=== PATIENT | male | born 1955 | race Caucasian/White ===

== ENCOUNTER 2021-06-06 10:47 | Outpatient (CLI) | payer BC, SELFPAY ==
--- NOTE | 2021-06-06 11:16 | ECG_ITS ---
Measurements Intervals [place] Rate: 56 P: 47 [place]: 162 QRS: 9 QRSD: 123 T: 31 QT: 442 QTc: 427 Interpretive Statements SINUS BRADYCARDIA INCOMPLETE RIGHT BUNDLE BRANCH BLOCK BASELINE ARTIFACT- V1-V2 BORDERLINE ECG Electronically Signed On 06-06-2021 11:43:55 CDT by Niranjan Wesley D.O.
== END 2021-06-06 10:48 | disposition home or self-care (01) ==
PROVIDERS: PCP Family Medicine; Visit Provider Podiatrist Foot & Ankle Surgery
DX: Z01.810 Encounter for preprocedural cardiovascular examination (principal); I10 Essential (primary) hypertension
CPT/HCPCS: 93005

== ENCOUNTER 2021-06-25 08:32 | Outpatient (CLI) | payer BC, SELFPAY ==
--- NOTE | 2021-06-25 08:43 | ECHO_ITS ---
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 Summary 1. Complete two-dimensional, color flow and Doppler transthoracic echocardiogram is performed. 2. Left ventricular chamber size, systolic and diastolic function are normal with no regional wall motion abnormalities with an estimated ejection fraction of >70%. Mild concentric LVH. 3. Left atrial chamber dimension is moderately enlarged. 4. There is moderate to severe aortic valve stenosis with a peak velocity of 409 cm/s, mean gradient of 38 mmHg, and aortic valve area of 1.2 cm2. 5. There is severe aortic valve calcification. Unable to determine the morphology of the aortic valve; may be bicuspid. 6. Redundant chordae noted in the ventricle. Trace mitral regurgitation. 7. There is mild to moderate aortic valve regurgitation. 8. No pulmonary hypertension, estimated pulmonary arterial systolic pressure is 25 mmHg. 9. Normal sinus rhythm. Recommendations * Consider cardiology evaluation. Left Ventricle Left ventricular chamber dimension is normal. Left ventricular systolic function is normal, estimated at >70%. There is mildly increased left ventricular wall thickness. Left ventricular septal wall motion is normal. The left ventricular diastolic function is normal. Left ventricular chamber size, systolic and diastolic function are normal with no regional wall motion abnormalities with an estimated ejection fraction of >70%. Mild concentric LVH. Right Ventricle Right ventricular chamber dimension is normal. Right ventricular systolic function is normal. Left Atria Left atrial chamber dimension is moderately enlarged. Right Atria Right atrial chamber dimension is normal. Aortic Valve The aortic valve is trileaflet. There is no aortic valve sclerosis. There is moderate to severe aortic valve stenosis with a peak velocity of 409 cm/s, mean gradient of 38 mmHg, and aortic valve area of 1.2 cm2. There is mild to moderate aortic valve regurgitation. There is severe aortic valve calcification. Unable to determine the morphology of the aortic valve; may be bicuspid. Pulmonic Valve The pulmonic valve is normal. There is no pulmonic valve stenosis. There is no pulmonic regurgitation. Mitral Valve The mitral valve has normal leaflets. There is no mitral valve stenosis. There is trace mitral valve regurgitation. Tricuspid Valve The tricuspid valve leaflets are normal. There is no significant tricuspid valve stenosis. There is trace tricuspid valve regurgitation. No pulmonary hypertension, estimated pulmonary arterial systolic pressure is 25 mmHg. Pericardium/Pleural The pericardium appears normal. There is no pericardial effusion. Inferior Vena Cava Normal inferior vena cava with >50% collapse upon inspiration consistent with Empty right atrial pressure, 10 mmHg.
== END 2021-06-25 08:33 | disposition home or self-care (01) ==
PROVIDERS: PCP Family Medicine; Visit Provider Physician Assistant
DX: Q23.1 Congenital insufficiency of aortic valve (principal)
CPT/HCPCS: 93306

== ENCOUNTER → 2021-11-07 07:03 | Outpatient (CLI) | payer BC, SELFPAY ==
[2021-11-08 02:21] LABS: SARS-CoV-2 RNA PCR Negative
== END ==
PROVIDERS: PCP Family Medicine; Visit Provider Physician Assistant Medical
DX: Z20.822 Contact with and (suspected) exposure to COVID-19 (principal)
CPT/HCPCS: C9803; U0003; U0005

== ENCOUNTER 2022-05-02 14:16 | Outpatient (CLI) | payer BC, SELFPAY ==
--- NOTE | ~2022-05-02 | US_ITS ---
EXAMINATION: US venous doppler LE RT DATE: 05/02/2022 14:51 INDICATION: Right lower limb swelling TECHNIQUE: Grayscale ultrasound images without and with compression and Doppler ultrasound images of the right lower extremity veins were obtained. COMPARISON: 06/23/2017 FINDINGS: The visualized portions of right common femoral vein, profunda (deep) femoral vein, femoral vein, pop liteal vein, peroneal trunk, posterior tibial veins, peroneal veins and greater saphenous vein outflo w remain patent. IMPRESSION: 1. No deep venous thrombosis in the right lower limb. Reviewed, dictated and finalized at location B.
== END 2022-05-02 14:17 | disposition home or self-care (01) ==
PROVIDERS: PCP Family Medicine; Visit Provider Podiatrist Foot & Ankle Surgery
DX: M79.661 Pain in right lower leg (principal)
CPT/HCPCS: 93971

== ENCOUNTER 2022-09-03 08:34 | Outpatient (CLI) | payer BC, SELFPAY ==
--- NOTE | 2022-09-03 | ECG_ITS ---
Measurements Intervals [place] Rate: 54 P: 42 [place]: 168 QRS: 11 QRSD: 121 T: 28 QT: 432 QTc: 413 Interpretive Statements SINUS BRADYCARDIA POSSIBLE RIGHT VENTRICULAR CONDUCTION DELAY [RSR (QR) IN V1/V2] NO PREVIOUS ECG AVAILABLE FOR COMPARISON Electronically Signed On 09-03-2022 16:15:49 CDT by Marty Ceron M.D.
== END 2022-09-03 08:35 | disposition home or self-care (01) ==
PROVIDERS: PCP Family Medicine; Visit Provider Podiatrist Foot & Ankle Surgery
DX: R03.0 Elevated blood-pressure reading, without diagnosis of hypertension (principal); R00.1 Bradycardia, unspecified
CPT/HCPCS: 93005

== ENCOUNTER 2023-11-20 08:51 | Outpatient (CLI) | payer BC, SELFPAY ==
--- NOTE | 2023-11-24 13:39 | WPDHOMESLEEP ---
Sleep Study - Home Unattended Date of Study: 11/20/23 Ordering Provider: Deisy Moreno NP-C Interpreting Provider: Desi Savage, DO Home Sleep Study Type: Watch PAT Height: 1.93 m Weight: 109.769 kg Body Mass Index: 29.4 Neck Circumference (inches): 17 [place]: 7 Reason for Sleep Study Nocturia, difficulty falling & staying asleep Sleep History The patient is a 68 year male with severe aortic stenosis status post valve replacement, hypertension, hyperlipidemia, obesity and prediabetes that had a sleep study ordered by his primary care for evaluation of sleep apnea. The patient occasionally awakens from sleep short of breath. He denies awakening at night with heartburn, belching or cough. He frequently snores and is frequently loud enough that others complain. He occasionally has trouble sleeping when he has a cold. He occasionally wakes up gasping for air throughout the night. He rarely has breathing problems at night observed by himself or others. He occasionally sweats excessively at night. He occasionally has heart palpitations or irregular heartbeats during the night. He occasionally falls asleep during the day but never while driving. He denies sleep paralysis, cataplexy and hypnagogic / hypnopompic hallucinations. He rarely has trouble at school or work due to sleepiness. He denies feeling afraid of going to sleep. He denies having nightmares. He occasionally remembers his dreams. He occasionally has thoughts racing through his mind. He rarely feels sad or depressed. He occasionally has anxiety. He rarely has muscular tension. He denies noticing parts of his body jerk. He denies kicking during the night. He denies having crawling and aching feelings in his legs and denies having leg pain during the night. He denies grinding his teeth during sleep and denies awakening with morning jaw pain. He is occasionally bothered by pain during the day but rarely awakened by pain during the night. He occasionally wakes up feeling stiff in the morning. He occasionally wakes up with sore or achy muscles. He rarely wakes up with pain in the neck, spine and other joints. He goes to bed at 10:00 p.m. on weekdays and 11:00 p.m. on the weekends. It takes him 5-10 minutes to fall asleep. He wakes up 2-3 times throughout the night to urinate and is able to fall back asleep within 15 minutes. He wakes up at 6:00 a.m. on weekdays and 7:00 a.m. on the weekends. He typically gets 7-8 hours of sleep per night. He will spend a few minutes in bed after waking up in the morning. He currently lives with his . He denies consuming any caffeinated beverages within 2 hours of bedtime. He denies engaging in physical exercise before bedtime. He will watch television before falling asleep. He will take naps in the afternoon or the evening and they are refreshing. He denies consuming caffeinated beverages throughout the day. He denies tobacco, alcohol and recreational drug use. [facility] Past Medical History Medical History Hepatitis C antibody test negative (07/01/17) Surgical History Surgical History H/O colonoscopy 04-08-2014 History of open heart surgery 09/12/23 Family History Family History Mother Diabetes mellitus Hypertension Cerebrovascular accident Carcinoma of colon Father Hypertension, Onset Age: 64 Family history of elevated blood lipids, Onset Age: 64 Acute myocardial infarction, Onset Age: 64 Sibling Malignant neoplasm of prostate Social History Social History Smoking status: Never smoker Alcohol intake: current Lack of Transportation: No Lack of Food: Never True Current Housing: I Have Housing Concerned About Future Housing: No Difficulty Paying
[2023-11-24 13:41] VITALS: BMI 29.4
== END 2023-11-21 07:30 | disposition home or self-care (01) ==
LOC: ANHCSM 08:57
PROVIDERS: PCP Family Medicine; Visit Provider Nurse Practitioner
DX: G47.33 Obstructive sleep apnea (adult) (pediatric) (principal)
CPT/HCPCS: 95800

== ENCOUNTER 2023-12-29 12:08 | Outpatient (CLI) | payer BC, SELFPAY ==
[2023-12-29 13:21] LABS: Alanine Aminotransferase 25 U/L (6-50); Albumin Level 4.5 g/dL (3.5-5.1); Alkaline Phosphatase 66 U/L (38-126); Anion Gap 3 mmol/L (8-16); Aspartate Amino Transferase 29 U/L (17-59); Blood Urea Nitrogen 15 mg/dL (9-20); Calcium 9.5 mg/dL (8.4-10.2); Carbon Dioxide 34 mmol/L (22-30); Chloride 103 mmol/L (98-107); Estimated Glomerular Filt Rate > 60; Glucose 90 mg/dL (65-110); Potassium 4.4 mmol/L (3.4-5.0); Sodium 140 mmol/L (137-145)
== END 2023-12-29 12:09 | disposition home or self-care (01) ==
LOC: ANHLAB 12:10
PROVIDERS: PCP Family Medicine; Visit Provider Internal Medicine Cardiovascular Disease
DX: I25.10 Atherosclerotic heart disease of native coronary artery without angina pectoris (principal); I10 Essential (primary) hypertension
CPT/HCPCS: 36415; 80053

== ENCOUNTER 2024-01-01 08:58 | Outpatient (CLI) | payer BC, SELFPAY ==
--- NOTE | 2024-01-27 13:19 | WPDSLEEPSTUD ---
Sleep Study Date of Study: 01/01/24 Ordering Provider: Desi Savage DO Interpreting Physician: Desi Savage DO Sleep Study Type: CPAP Titration Height: 1.91 m Weight: 109.769 kg Body Mass Index: 30.2 Neck Circumference (inches): 17 [place]: 7 Reason for Sleep Study The patient had a WatchPAT home sleep test on 11/20/2023 that showed an overall AHI of 15.9 with desaturation down to 72%. Sleep History The patient is a 68 year male with severe aortic stenosis status post valve replacement, hypertension, hyperlipidemia, obesity and prediabetes that had a sleep study ordered by his primary care for evaluation of sleep apnea.? The patient occasionally awakens from sleep short of breath.? He denies awakening at night with heartburn, belching or cough.? He frequently snores and is frequently loud enough that others complain.? He occasionally has trouble sleeping when he has a cold.? He occasionally wakes up gasping for air throughout the night.? He rarely has breathing problems at night observed by himself or others.? He occasionally sweats excessively at night.? He occasionally has heart palpitations or irregular heartbeats during the night.? He occasionally falls asleep during the day but never while driving.? He denies sleep paralysis, cataplexy and hypnagogic / hypnopompic hallucinations.? He rarely has trouble at school or work due to sleepiness.? He denies feeling afraid of going to sleep.? He denies having nightmares.? He occasionally remembers his dreams.? He occasionally has thoughts racing through his mind.? He rarely feels sad or depressed.? He occasionally has anxiety.? He rarely has muscular tension.? He denies noticing parts of his body jerk.? He denies kicking during the night.? He denies having crawling and aching feelings in his legs and denies having leg pain during the night.? He denies grinding his teeth during sleep and denies awakening with morning jaw pain.? He is occasionally bothered by pain during the day but rarely awakened by pain during the night.? He occasionally wakes up feeling stiff in the morning.? He occasionally wakes up with sore or achy muscles.? He rarely wakes up with pain in the neck, spine and other joints.? He goes to bed at 10:00 p.m. on weekdays and 11:00 p.m. on the weekends.? It takes him 5-10 minutes to fall asleep.? He wakes up 2-3 times throughout the night to urinate and is able to fall back asleep within 15 minutes.? He wakes up at 6:00 a.m. on weekdays and 7:00 a.m. on the weekends.? He typically gets 7-8 hours of sleep per night.? He will spend a few minutes in bed after waking up in the morning.? He currently lives with his .? He denies consuming any caffeinated beverages within 2 hours of bedtime.? He denies engaging in physical exercise before bedtime.? He will watch television before falling asleep.? He will take naps in the afternoon or the evening and they are refreshing.? He denies consuming caffeinated beverages throughout the day.? He denies tobacco, alcohol and recreational drug use. [facility] Past Medical History Medical History Hepatitis C antibody test negative (07/01/17) Surgical History Surgical History H/O colonoscopy 04-08-2014 History of open heart surgery 09/12/23 Family History Family History Mother Diabetes mellitus Hypertension Cerebrovascular accident Carcinoma of colon Father Hypertension, Onset Age: 64 Family history of elevated blood lipids, Onset Age: 64 Acute myocardial infarction, Onset Age: 64 Sibling Malignant neoplasm of prostate Social History Social History Smoking status: Never smoker Alcohol intake: current Lack of Transportation: No Lack of Food: Never True Current Housing: I Have [place]
[2024-01-27 13:25] VITALS: BMI 30.2
== END 2024-01-02 07:21 | disposition home or self-care (01) ==
LOC: ANHCSM 08:58
PROVIDERS: PCP Family Medicine; Visit Provider Family Medicine
DX: G47.33 Obstructive sleep apnea (adult) (pediatric) (principal)
CPT/HCPCS: 95811

== ENCOUNTER 2024-04-29 15:59 | Outpatient (CLI) | payer BC, SELFPAY ==
[2024-04-29 20:00] LABS: Anion Gap 5 mmol/L (4-12); Blood Urea Nitrogen 14 mg/dL (9-20); Calcium 9.1 mg/dL (8.4-10.2); Carbon Dioxide 31 mmol/L (22-30); Chloride 107 mmol/L (98-107); Estimated Glomerular Filt Rate > 60; Glucose 95 mg/dL (65-110); Sodium 143 mmol/L (137-145)
== END 2024-04-29 16:00 | disposition home or self-care (01) ==
LOC: ANHGOSHLAB 16:00
PROVIDERS: PCP Family Medicine; Visit Provider Family Medicine
DX: Z79.899 Other long term (current) drug therapy (principal)
CPT/HCPCS: 36415; 80048

== ENCOUNTER 2024-06-25 16:06 | Outpatient (CLI) | payer BC, SELFPAY ==
--- NOTE | ~2024-06-25 | XR_ITS ---
XR knee LT 3V Ordering provider: Deisy Moreno, CHIEF LEARNING OFFICER-C History: . M25.562 - Pain in left knee . Comparison: None. FINDINGS: BONES: No acute fracture or dislocation. Bone islands seen in the proximal tibia. JOINT SPACES: Normal. Marginal size seen in the patella. SOFT TISSUES: Ossification of the insertion of the quadriceps tendon. IMPRESSION: No acute osseous abnormality left knee. Reviewed, dictated and finalized at location A.
== END 2024-06-25 16:07 | disposition home or self-care (01) ==
LOC: ANHIMG 16:08
PROVIDERS: PCP Family Medicine; Visit Provider Nurse Practitioner
DX: M25.562 Pain in left knee (principal)
CPT/HCPCS: 73562

== ENCOUNTER 2024-12-17 00:20 | Day surgery (SDC) | payer BC, SELFPAY ==
[2024-12-10 15:22] VITALS: BMI 30.2
--- NOTE | 2024-12-10 15:39 | SUR.PREOP ---
Spoke with patient regarding medication Plavix. Patient verbalizes understanding that the last dose is to be taken on 12/12/24 and the Endoscopist will instruct them when to restart after the procedure.
--- NOTE | 2024-12-13 13:13 | PC.NURSE ---
Spoke with patient regarding medication plavix. Patient verbalizes understanding that the last dose is to be taken on 12/12/2024- states he saw Dr. Funes today and he will not be restarting Plavix and will remain only on an Aspirin 81mg daily .
--- OUTSIDE RECORDS SUMMARY | 2024-12-17 00:22 | XMS_ITS | Referral Summary ---
Author Organization [place] [address] [address] [facility] [address] [place] [address] Care Team Providers Care Transportation Operations Manager Name Role Phone Wendy Curiel Primary Care Provider Nile Parish MD Unavailable [phone] Su Funes MD Unavailable [phone] Encounters Date Type Department Care Team Description 12/13/2024 8:15 AM FACILITIES PROJECT MANAGER Office Visit [facility] Cardiology [address] [facility] [address] [place] [address] Su Funes MD S/P CABG x 1 (Primary Dx); S/P AVR (aortic valve replacement); Postoperative atrial fibrillation (CMS/HCC) (HCC); Primary hypertension; Mixed hyperlipidemia; Chronic diastolic congestive heart failure (CMS/HCC) (HCC); Coronary artery disease involving [place] coronary artery of [place] heart without angina pectoris; Other sleep apnea 12/09/2024 Telephone [facility] Cardiology [address] [place] [address] [address] [place] [address] Su Funes MD 10/06/2024 Telephone [facility] Cardiology [address] [place] [address] [address] [place] [address] Su Funes MD from Last 3 Months Allergies Active Allergy Reactions Criticality Noted Date Comments Iodinated Contrast Media Rash,Flushing (skin) Medium 0 08/08/2023 Medications [id number] -Lmfolate-algal 27 mg iron-1.13 mg-581.92 mg capsule Take 2 tablets by mouth daily Active metoprolol tartrate (LOPRESSOR) 25 mg immediate release tabletIndicatio ns:Postoperativ e atrial fibrillation (CMS/HCC) (HCC) Take 1 tablet (25 mg total) by mouth 2 (two) times a day 180 tablet 3 11/14/19 24 Active Additional Information Patient taking differently:25 mg oralDaily, Reported on 12/13/2024 furosemide (LASIX) 40 mg tabletIndicatio ns:S/P CABG x 1 TAKE 1 TABLET BY MOUTH EVERY DAY 90 tablet 3 01/15/20 24 Active potassium chloride ER (Klor-Con M20) 20 mEq CR tabletIndicatio ns:Primary hypertension TAKE 1 TABLET BY MOUTH 2 TIMES A DAY. 180 tablet 3 03/22/20 24 Active hydrALAZINE (APRESOLINE) 25 mg tabletIndicatio ns:Primary hypertension TAKE 1 TABLET BY MOUTH THREE TIMES A DAY 270 tablet 1 09/27/20 24 Active amoxicillin (AMOXIL) 500 mg tablet/capsule Take 4 caps (2000 mg) 1 hour prior to dentist appointment. 4 tablet/caps ule 1 10/06/20 24 Active atorvastatin (LIPITOR) 10 mg tabletIndicatio ns:S/P CABG x 1 TAKE 1 TABLET BY MOUTH EVERY DAY 90 tablet 2 10/29/20 24 Active aspirin 81 mg enteric coated tabletIndicatio ns:S/P CABG x 1 TAKE 1 TABLET BY MOUTH EVERY DAY 90 tablet 2 11/02/20 24 Active clopidogreL (PLAVIX) 75 mg tabletIndicatio ns:S/P CABG x 1 TAKE 1 TABLET BY MOUTH EVERY DAY 90 tablet 1 09/27/20 24 025 Discontinued Active Problems Problem Noted Date Diagnosed Date S/P AVR (aortic valve replacement) 10/20/2023 S/P CABG x 1 10/20/2023 Other thrombophilia 10/20/2023 Postoperative atrial fibrillation (CMS/HCC) 09/10 Chronic diastolic congestive heart failure (CMS/ HCC) 09/21/2023 Coronary artery disease invo lving [place] coronary artery of [place] heart without angina pectoris 09/21/2023 Other sleep apnea 01/13/2023 Hypertension 07/09/2021 Hyperlipidemia 07/09/2021 Resolved Problems Problem Noted Date Diagnosed Date Resolved Date Paroxysmal atrial fibrillation (CMS/HCC) 09/20/2023 10/20/2023 Aortic valve stenosis, etiol ogy of cardiac valve disease unspecified 09/12/2023 03/01/2024 Aortic valve stenosis 09/02/20232023 SOB (shortness of breath) on exertion 07/21/2023 12/13/2024 Nonrheumatic aortic valve stenosis 07/08/2022 12/13/2024 Social History Tobacco Use Types Packs/Day Years Used Date Smoking Tobacco: Never Passive Smoke Exposure: Past Smokeless Tobacco: Never OASIS D0700: Social Isolation Answer Da te Recorded Frequency of experiencing loneliness or isolatio n Never 10/17/2023 OASIS A1250: Transportation Answer Date Recorded Lack of Transportation (Medical) No 10/17/2023 Lack of Transportation (Non-Medical) No 10/17/2023 Patient Unable or Declines to Respond No 10/17/2023 OASIS B1300: Health Literacy Answer Shaan e Recorded Frequency of needing help to read materials from doctor or pharmacy Rarely 10/17/2023 [facility] Utilities Answer Date Recorded In the past 12 months has th e electric, gas, oil, or water company threatened to shut off services in your home? No 09/22/2023 Social Connection and Isolation Panel [NHANES] A nswer Date Recorded Frequency of Communication with Friends and Fami ly Not on file 09/22/2023 Frequency of Social Gatherings with Friends and Family Not on file 09/22/2023 Attends Baptism Services Not on file 09/22 Active Member of Clubs or Organizations Not on f ile 09/22/2023 Attends Club or Organization Meetings Not on jessenia e 09/22/2023 Are you , , di vorced, , never , or living with a partner? 09/22/2023 AUDIT-C Answer Date Recorded Q1: How often do you have a drink containing alc ohol? 2-3 times a week 09/12/2023 Q2: How many drinks containi ng alcohol do you have on a typical day when you are drinking? 1 or 2 09/12/2023 Q3: How often do you have si x or more drinks on one occasion? Never 09/12/2023 Overall Financial Resource Strain (CARDIA) Answe r Date Recorded How hard is it for you to pa y for the very basics like food, housing, medical care, and heating? Not hard at all 09/22/2023 Hunger Vital Sign Answer Date Recorded Within the past 12 months, y ou worried that your food would run out before you got the money to buy more. Never true 09/15/20 23 Within the past 12 months, t he food you bought just didn't last and you didn't have money to get more. Never true 09/15/2023 PRAPARE - Transportation Answer Date Re corded In the past 12 months, has l ack of transportation kept you from medical appointments or from getting medications? No 09/10 In the past 12 months, has l ack of transportation kept you from meetings, work, or from getting things needed for daily living? No 09/22/2023 Housing Stability Vital Sign Answer Shaan e Recorded In the last 12 months, was t here a time when you were not able to pay the mortgage or rent on time? No 09/15/2023 In the last 12 months, how many places have you lived? 1 09/15/2023 In the last 12 months, was t here a time when you did not have a steady place to sleep or slept in a mcc (including now)? No 09/15/2023 Personal Safety Answer Date Recorded Have you ever been in or are you currently in a harmful physical or emotional relationship or is someone making you feel afraid or unsafe? Denies 09/20/2023 Sex and Gender Information Value Date Recorded Sex Assigned at Not on file Legal Sex Male 8:58 AM FACILITIES PROJECT MANAGER Gender Identity Not on file Sexual Orientation Not on file Last Filed Vital Signs Vital Sign Reading Time Taken Comments Blood Pressure 120/74 12/13/2024 8:16 AM FACILITIES PROJECT MANAGER Pulse 80 12/13/2024 8:16 AM FACILITIES PROJECT MANAGER Temperature 35.9 C (96.6 F) 10/17/2023 1:45 PM FACILITIES PROJECT MANAGER Respiratory Rate 14 01/20/2024 11:3 5 AM CDT Oxygen Saturation 97% 12/13/2024 8:16 AM FACILITIES PROJECT MANAGER Inhaled Oxygen Concentration - - Weight 114.2 kg (251 lb 12.8 oz) 12/13/2024 8:16 AM FACILITIES PROJECT MANAGER Height 193 cm (6' 4 ) 12/13/2024 8:16 AM FACILITIES PROJECT MANAGER Body Mass Index 30.65 12/13/2024 8:16 AM FACILITIES PROJECT MANAGER Plan of Treatment Not on file Medical Devices Implanted Type Area Fly Setter Device Identifier Shelf Expiration Date Model / Serial / Lot [employer] Device Closure Vascade Od5 Fr Femoral Artery [id number] - [id number] Implanted:Qty: 1 on 07/29/2023 by Su Funes MD at [facility] [employer] 05/05/2025 [id number] / / [id number] [employer] Inspiris Resilia Leaflet Aortic Valve 25mm [id number] - [id number] - [id number] Implanted:Qty: 1 on 09/12/2023 by Nile Parish MD at [facility] N/A: Heart [employer] 06/11/2027 [id number] / [id number] / Procedures Procedure Name Priority Date/Time Associated Diagnosis Comments POCT LIPID PANEL Routine 12/13/2024 8:17 AM FACILITIES PROJECT MANAGER Mixed hyperlipidemia Coronary artery disease involving [place] coronary artery of [place] heart without angina pectoris from Last 3 Months Results * POCT lipid panel (12/13/2024 8:17 AM FACILITIES PROJECT MANAGER) Cholesterol, POC 157 mg/dL HDL, POC 28 mg/dL Triglycerides, POC 134 mg/dL LDL Cholesterol POC 102 mg/dL Chol/HDL Ratio, POC 3.7 Non-HDL Cholesterol, POC 129 mg/dL Cholesterol Total, POC 157 mg/dL Capillary blood 12/13/2024 8 :17 AM FACILITIES PROJECT MANAGER us Su Funes MD POINT OF CARE TEST O RDERABLES Final Result from Last 3 Months Insurance [facility] [place] [id number] MEDICARE BLUE ACCESS CHOICE [place] Advance Directives For more information, please contact: [phone] * Full Code (Latest Code Status on File) Date Activated Date Inactivated Comments 09/20/2023 4:33 PM 09/22/2023 10:52 PM * Full Code Date Activated Date Inactivated Comments 09/12/2023 2:36 PM 09/17/2023 8:19 PM * Full Code Date Activated Date Inactivated Comments 07/29/2023 2:47 PM 07/29/2023 9:26 PM Care Teams Transportation Operations Manager Relationship Specialty Start Date End Date Wendy Curiel PA [address] [place] [address] PCP - General Physician Chief Recordist 06/25/21 [place] [address] [place] [address] Surgeon Cardiothoracic Surgery 09/17/23 Su Funes MD [address] [facility] [address] [address] Consulting Physician Interventional Cardiology 09/17/23
--- OUTSIDE RECORDS SUMMARY | 2024-12-17 00:22 | XMS_ITS | Clinical Summary ---
Author Organization [facility] [address] Address [address] [place] [address] Care Team Providers Care Stage Electrician Helper Name Role Phone Wendy Curiel Primary Care Provider Nile Parish MD Unavailable [phone] Su Funes MD Unavailable [phone] Allergies Active Allergy Reactions Criticality Noted Date Comments Iodinated Contrast Media Rash,Flushing (skin) Medium 0 08/08/2023 Medications [id number] -Lmfolate-algal 27 mg iron-1.13 mg-581.92 mg capsule [...] HCC) 09/21/2023 Coronary artery disease invo lving la posta coronary artery of la posta heart without angina pectoris 09/21/2023 Other sleep apnea 01/13/2023 Hypertension 07/09/2021 Hyperlipidemia 07/09/2021 Resolved Problems Problem Noted Date Diagnosed Date Resolved Date Paroxysmal atrial fibrillation (CMS/HCC) 09/20/2023 10/20/2023 Aortic valve stenosis, etiol ogy of cardiac valve disease unspecified 09/12/2023 03/01/2024 Aortic valve stenosis 09/02/20232023 SOB (shortness of breath) on exertion 07/21/2023 12/13/2024 Nonrheumatic aortic valve stenosis 07/08/2022 12/13/2024 Encounters Date Type Department Care Team Description 12/13/2024 8:15 AM SR VICE PRESIDENT Office Visit [facility] [address] [place] [address] Su Funes MD S/P CABG x 1 (Primary Dx); S/P AVR (aortic valve replacement); Postoperative atrial fibrillation (CMS/HCC) (HCC); Primary hypertension; Mixed hyperlipidemia; Chronic diastolic congestive heart failure (CMS/HCC) (HCC); Coronary artery disease involving la posta coronary artery of la posta heart without angina pectoris; Other sleep apnea 12/09/[address] [facility] [address] [place] [address] Su Funes MD 10/06/[address] [facility] [address] [place] [address] Su Funes MD from Last 3 Months Surgical History Surgery Date Site/Laterality Comments KNEE SURGERY 11/10/2019 - 11/09/2020 Right meniscus FOOT SURGERY Right 4th and 5th toe bone spur removed CARDIAC CATHETERIZATION Medical History Medical History Date Comments Hypertension Heart murmur Hyperlipidemia Cataract Nonrheumatic aortic (valve) stenosis SOB (shortness of breath) on exertion Toenail fungus Tinnitus Coronary artery disease Covid 08/22/2023 Other sleep apnea 01/13/2023 Family History Medical History Relation Name Comments Dementia Brother 1 No Known Problems Brother 2 No Known Problems Brother 3 Heart attack Father Stroke Mother 88 No Known Problems Sister Relation Name Status Comments Brother 1 (Age 73) Brother 2 Alive Brother 3 Alive Father (Age 65) Mother 88 Sister Alive Social History Tobacco Use Types Packs/Day Years [...] materials from doctor or pharmacy Rarely 10/17/2023 [facility] Utilities Answer Date Recorded In the past 12 months has th e [employer], gas, oil, or water company threatened to shut off services in your home? No 09/22/2023 Social Connection and Isolation Panel [NHANES] A nswer Date Recorded Frequency of Communication with Friends and Fami ly Not on file 09/22/2023 Frequency of Social Gatherings with Friends and Family Not on file 09/22/2023 Attends Alevism Services Not on file 09/22 Active Member [...] place to sleep or slept in a snf (including now)? No 09/15/2023 Personal Safety Answer Date Recorded Have you ever been in or are you currently in a harmful physical or emotional relationship or is someone making you feel afraid or unsafe? Denies 09/20/2023 Sex and Gender Information Value Date Recorded Sex Assigned at Not on file Legal Sex Male 8:58 AM SR VICE PRESIDENT Gender Identity Not on file Sexual Orientation Not on file Obstetrics History Last Filed Vital Signs Vital Sign Reading Time Taken Comments Blood Pressure 120/74 12/13/2024 8:16 AM SR VICE PRESIDENT Pulse 80 12/13/2024 8:16 AM SR VICE PRESIDENT Temperature 35.9 C (96.6 F) 10/17/2023 1:45 PM SR VICE PRESIDENT Respiratory Rate 14 01/20/2024 11:3 5 AM CDT Oxygen Saturation 97% 12/13/2024 8:16 AM SR VICE PRESIDENT Inhaled Oxygen Concentration - - Weight 114.2 kg (251 lb 12.8 oz) 12/13/2024 8:16 AM SR VICE PRESIDENT Height 193 cm (6' 4 ) 12/13/2024 8:16 AM SR VICE PRESIDENT Body Mass Index 30.65 12/13/2024 8:16 AM SR VICE PRESIDENT Plan of Treatment Health Maintenance Due Date Last Done Comments Colon Cancer Screening-Colonoscopy 1955 Depression Screening 1957 Hepatitis C Screening 1957 Prostate Cancer Screening-PSA 1957 Pneumococcal vaccine 65+ (1 of 2 - PCV) 1963 DTaP/Tdap/Td Vaccine (1 - Tdap) 1968 Hepatitis B Screening 1975 Well Visit 65+ 2022 Covid-19 Vaccine (2 - 2023-2 5 season) 2024 01/16/2021 Influenza Vaccine (#1) 2024 , 08/24/2019, 07/07/2018, Additional history exists Fall Risk Assessment 09/22/2024 09/22/2023 Zoster Vaccine Completed 12/27/2019, 09/12/2019 Medical Devices Implanted Type Area Mounting Machine Operator Device Identifier Shelf Expiration Date Model / Serial / Lot [employer] Device Closure Vascade Od5 Fr Femoral Artery [id number] - [id number] Implanted:Qty: 1 on 07/29/2023 by Su Funes MD at [facility] [employer] 05/05/2025 [id number] / / [id number] Dc [employer]ciences Inspiris Resilia Leaflet Aortic Valve [id number] - [id number] - [id number] Implanted:Qty: 1 on 09/12/2023 by Nile Parish MD at [facility] N/A: Heart Dc [employer] 06/11/2027 [id number] / [id number] / Procedures Procedure Name Priority Date/Time Associated Diagnosis Comments POCT LIPID PANEL Routine 12/13/2024 8:17 AM SR VICE PRESIDENT Mixed hyperlipidemia Coronary artery disease involving la posta coronary artery of la posta heart without angina pectoris from Last 3 Months Results * POCT lipid panel (12/13/2024 8:17 AM SR VICE PRESIDENT) Cholesterol, POC 157 mg/dL HDL, POC 28 mg/dL Triglycerides, POC 134 mg/dL LDL Cholesterol POC 102 mg/dL Chol/HDL Ratio, POC 3.7 Non-HDL Cholesterol, POC 129 mg/dL Cholesterol Total, POC 157 mg/dL Capillary blood 12/13/2024 8 :17 AM SR VICE PRESIDENT us Su Funes MD POINT OF CARE TEST O RDERABLES Final Result from Last 3 Months Insurance [facility] [employer] [place] [employer] [place] Directives For more information, please contact: [phone] * Full Code (Latest Code Status on File) Date Activated Date Inactivated Comments 09/20/2023 4:33 PM 09/22/2023 10:52 PM * Full Code Date Activated Date Inactivated Comments 09/12/2023 2:36 PM 09/17/2023 8:19 PM * Full Code Date Activated Date Inactivated Comments 07/29/2023 2:47 PM 07/29/2023 9:26 PM Care Teams Stage Electrician Helper Relationship Specialty Start Date End Date Wendy Curiel PA [address] [place] [place] [address] PCP - General Physician Brewery Representative 06/25/21 [place] [id number] [address] Surgeon Cardiothoracic Surgery 09/17/23 Su Funes MD [address] [facility] [address], [place] [id number] Consulting Physician Interventional Cardiology 09/17/23
--- OUTSIDE RECORDS SUMMARY | 2024-12-17 00:23 | XMS_ITS | Encounter Summary ---
Author Organization [facility] Address [address] [place] [address] Care Team Providers Care Marketing Ambassador Name Role Phone Wendy Curiel Primary Care Provider Nile Parish MD Unavailable [phone] Su Funes MD Unavailable [phone] Encounter Details Date Type Department Care Team (Late st Contact Info) Description 12/09/2024 Telephone [facility] Cardiology [address] [place] [address] Su Funes MD [address] [address] Social History Tobacco Use Types Packs/Day Years [...] materials from doctor or pharmacy Rarely 10/17/2023 [facility] Utilities Answer Date Recorded In the [...] and Family Not on file 09/22/2023 Attends Gnosticist Services Not on file 09/22 Active Member [...] place to sleep or slept in a residential (including now)? No 09/15/2023 Personal Safety Answer Date Recorded Have you ever been in or are you currently in a harmful physical or emotional relationship or is someone making you feel afraid or unsafe? Denies 09/20/2023 Sex and Gender Information Value Date Recorded Sex Assigned at Not on file Legal Sex Male 8:58 AM CORPORATE EXECUTIVE CHEF Gender Identity Not on file Sexual Orientation Not on file documented as of this encounter Miscellaneous Notes * Telephone Encounter - Rivera Jamil RN - 12/10/2024 6:32 PM CORPORATE EXECUTIVE CHEF Called pt LMOV, letting him know Dr. Funes signed his clearance, ok to hold plavix 4 days prior to procedure. Advised pt to call back with questions or concerns, faxing clearance now. ORATE EXECUTIVE CHEF * Telephone Encounter - Mary Beth Bronson RN - 12/10/2024 2:31 PM CORPORATE EXECUTIVE CHEF Forwarding to Rosanna. ORATE EXECUTIVE CHEF * Telephone Encounter - Tita Ann - 12/10/2024 2:23 PM CST Kim called from [facility] requesting update on cardiac clearance request. States she needs an answer by today because last day to hold blood thinners would be this Friday. Contact: ORATE EXECUTIVE CHEF * Telephone Encounter - Mary Beth Bronson RN - 12/09/2024 11:54 AM CORPORATE EXECUTIVE CHEF Faxing over clearance to [place] office where JF will be tomorrow for him to address. ORATE EXECUTIVE CHEF * Telephone Encounter - Tita Ann - 12/09/2024 11:48 AM CST Kim called from [facility] states she faxed a cardiac clearance request on 12/06. Pt is scheduled on 12/17 but last day to hold blood thinners would be this Friday. Requesting call with an update. Contact: ORATE EXECUTIVE CHEF documented in this encounter Plan of Treatment Not on file documented as of this encounter Visit Diagnoses Not on filedocumented in this encounter Care Teams Marketing Ambassador Relationship Specialty Start Date End Date Wendy Curiel PA [address] [place] [address] PCP - General Physician Electronic Systems Security Assessment 06/25/21 [place] [id number] [address] [facility] [address] [facility] [address], [place] [address] Surgeon Cardiothoracic Surgery 09/17/23 Su Funes MD [address] [facility] [address] [address] Consulting Physician Interventional Cardiology 09/17/23 documented as of this encounter
[2024-12-17 08:14] VITALS: BP 147/89; PULSE 72; RESP 16; TEMP 36.3; O2SAT 98
[2024-12-17] MEDS: LACTATED RINGERS 1,000 ML 150 ML IV CONT (08:24)
[2024-12-17] MEDS: GENTAMICIN 80MG/SOD CHL 50 ML 80 MG/50 ML BAG 100 MG IVPB (08:27)
[2024-12-17] MEDS: AMPICILLIN 2 GM/NS 100 ML 2 GM/100 ML BAG IVPB (08:46)
--- NOTE | 2024-12-17 08:46 | WPDANESEPPF ---
Anes - Initial Pre Proc Eval Procedure: Operation Date: 12/17/24 09:30 Proposed Procedures p Screening Colonoscopy - Neptali Li MD Date/Time: 12/17/24 08:46 Surgeon: Neptali Li MD Pre Op Diagnosis: screening colon Patient Data Age: 69 Gender: M Height: 1.93 m Weight: 110.9 kg Last Vital Signs Temp 36.3 C L 12/17/24 08:14 Pulse 72 12/17/24 08:14 Resp 16 12/17/24 08:14 BP 147/89 H 12/17/24 08:14 Pulse Ox 98 12/17/24 08:14 O2 Del Method Room Air 12/17/24 08:14 Allergies Allergy/AdvReac Type Severity Reaction Status Date / Time Iodinated Contrast Media AdvReac Mild Rash Verified 12/17/24 08:12 Home Medications ?Medication ?Instructions ?Recorded ?Confirmed ?Type [id number] 300 mcg-K 60 1 tablet PO DAILY 09/16/19 12/17/24 History mcg-lycop 600 mcg-lutein 300 mcg tablet (Centrum Silver Men) atorvastatin 10 mg tablet 10 mg PO DAILY #90 tabs 07/10/23 12/17/24 Rx aspirin 81 mg tablet,delayed 81 mg PO DAILY 11/05/23 12/17/24 History release clopidogrel 75 mg tablet 75 mg PO DAILY 11/05/23 12/17/24 History furosemide 40 mg tablet 40 mg PO DAILY 11/05/23 12/17/24 History metoprolol tartrate 25 mg tablet 25 mg PO BID 11/05/23 12/17/24 History CPAP supplies #1 ea 01/27/24 12/10/24 Rx hydralazine 25 mg tablet 25 mg PO BID 06/22/24 12/17/24 History potassium chloride 20 mEq 20 meq PO DAILY 06/22/24 12/17/24 History tablet,extended release Patient hx anesthesia problems: none Family hx anesthesia problems: none Results Review: All pre-operative results and documents have been reviewed as part of the pre-operative evaluation. [facility] Past Medical History Medical History Hepatitis C antibody test negative (07/01/17) Surgical History Surgical History History of open heart surgery 09/12/23 H/O colonoscopy 04-08-2014 Family History Family History Mother Diabetes mellitus Hypertension Cerebrovascular accident Carcinoma of colon Father Hypertension, Onset Age: 64 Family history of elevated blood lipids, Onset Age: 64 Acute myocardial infarction, Onset Age: 64 Sibling Malignant neoplasm of prostate Social History Social History Smoking status: Never smoker Alcohol intake: current Lack of Transportation: No Lack of Food: Never True Current Housing: I Have Housing Concerned About Future Housing: No Difficulty Paying Gas/Electric Bills: No Difficulty Paying for Meds: No Currently Unemployed: No Education: Associate Degree Difficulty w/ Childcare or Family Care: No Anes - Eval Final PreProcedure Day of Procedure 12/17/24 08:46 Patient weight: overweight Heart: regular rate and rhythm Lungs: clear to auscultation Airway: Mallampati scale class II Neurological: alert and oriented Last oral intake: >/= 8 hours ASA classification: III Emergent: no Anesthetic plan: proceed Anesthesia type and monitoring: general GIVS and standard monitoring Results Review: All pre-operative results and documents have been reviewed as part of the pre-operative evaluation. Informed Consent: The patient's anesthetic plan and its attendant risks and benefits were discussed with the patient/family/POA. Questions were solicited and answers provided to the satisfaction of the patient/family/POA.
--- NOTE | 2024-12-17 09:08 | PM.HPGS ---
History of Present Illness History of Present Illness Consent: Risks, benefits, and alternatives have been discussed and questions answered. Patient agrees to proceed with procedure. Chief complaint: screening colon Narrative: Yuri Prado is a 69 year old male with last colonoscopy in 2013 Review of Systems Review of Systems: All systems reviewed & are unremarkable except as noted in HPI and below PMFSH Past Medical History Medical History Hepatitis C antibody test negative (07/01/17) Surgical History Surgical History History of open heart surgery 09/12/23 H/O colonoscopy 04-08-2014 Family History Family History Mother Diabetes mellitus Hypertension Cerebrovascular accident Carcinoma of colon Father Hypertension, Onset Age: 64 Family history of elevated blood lipids, Onset Age: 64 Acute myocardial infarction, Onset Age: 64 Sibling Malignant neoplasm of prostate Social History Social History Smoking status: Never smoker Alcohol intake: current Lack of Transportation: No Lack of Food: Never True Current Housing: I Have Housing Concerned About Future Housing: No Difficulty Paying Gas/Electric Bills: No Difficulty Paying for Meds: No Currently Unemployed: No Education: Associate Degree Difficulty w/ Childcare or Family Care: No Meds Home Medications and Allergies Home Medications ?Medication ?Instructions ?Recorded ?Confirmed ?Type [id number] 300 mcg-K 60 1 tablet PO DAILY 09/16/19 12/17/24 History mcg-lycop 600 mcg-lutein 300 mcg tablet (Centrum Silver Men) atorvastatin 10 mg tablet 10 mg PO DAILY #90 tabs 07/10/23 12/17/24 Rx aspirin 81 mg tablet,delayed 81 mg PO DAILY 11/05/23 12/17/24 History release clopidogrel 75 mg tablet 75 mg PO DAILY 11/05/23 12/17/24 History furosemide 40 mg tablet 40 mg PO DAILY 11/05/23 12/17/24 History metoprolol tartrate 25 mg tablet 25 mg PO BID 11/05/23 12/17/24 History CPAP supplies #1 ea 01/27/24 12/10/24 Rx hydralazine 25 mg tablet 25 mg PO BID 06/22/24 12/17/24 History potassium chloride 20 mEq 20 meq PO DAILY 06/22/24 12/17/24 History tablet,extended release Allergies Allergy/AdvReac Type Severity Reaction Status Date / Time Iodinated Contrast Media AdvReac Mild Rash Verified 12/17/24 08:12 Vital Signs Vital Signs - 24 hr 12/17/24 08:14 Temperature 97.4 F L Pulse Rate 72 Respiratory Rate 16 Blood Pressure 147/89 H Pulse Oximetry 98 Oxygen Delivery Room Air Exam Const: General: comfortable and no acute distress HENMT: Face/Nose/Sinus: Normal nares present Eyes: General: appearance normal, both eyes and all related structures Neck: Neck: no JVD Resp: Auscultation: clear to auscultation bilaterally Cardio: Rate: regular rate Rhythm: regular rhythm GI: Inspection: non-distended GI Palp: Yes Soft to palpation Skin: General skin exam: normal color Neuro: General: gait normal Speech: normal speech Extrem: General: normal to inspection Psych: Mental Status: mental status grossly normal Assessment and Plan Assessment and plan (1) Screening for colon cancer: Code(s): Z12.11 - Encounter for screening for malignant neoplasm of colon Status: Acute Assessment and Plan: colonoscopy
[2024-12-17 09:23] VITALS: BP 133/76; PULSE 77; RESP 22; O2SAT 95
[2024-12-17 09:33] VITALS: BP 131/74; PULSE 71; RESP 22; O2SAT 95
[2024-12-17 09:43] VITALS: BP 141/80; PULSE 70; RESP 20; O2SAT 96
== END 2024-12-17 09:51 | disposition home or self-care (01) ==
PROVIDERS: PCP Nurse Practitioner; Referring Provider Nurse Practitioner; Visit Provider Internal Medicine Gastroenterology
PROC: 0DJD8ZZ Inspection of Lower Intestinal Tract, Via Natural or Artificial Opening Endoscopic (ICD-10-PCS; CPT 45378; principal; 2024-12-17 09:30)
DX: Z12.11 Encounter for screening for malignant neoplasm of colon (principal); K64.8 Other hemorrhoids
CPT/HCPCS: 45378; J0290; J1580; J2003; J2704; J7120